=== PATIENT | male | born 1985 | race Hispanic/Latino ===

== ENCOUNTER 2020-09-01 13:27 | Observation (INO) | payer SELFPAY ==
[~2020-09-01] VITALS: Ht 162.6 cm; Wt 72.6 kg
[2020-09-01] MEDS ORDERED: SODIUM CHLORIDE 0.9% 1000ML 1,000 ML IV STA (13:40)
[2020-09-01] MEDS ORDERED: METHYLPREDNISOLONE SOD SUCC 125 MG/2ML VIAL IV STA (13:40)
[2020-09-01] MEDS ORDERED: DIPHENHYDRAMINE HCL INJ 50 MG/ML VIAL IV ONE (13:45)
[2020-09-01] MEDS ORDERED: FAMOTIDINE 20 MG/2 ML VIAL IV NR (13:45)
[2020-09-01] MEDS ORDERED: EPINEPHRINE HCL 1:1000 1ML 1 MG/ML AMP ONE (13:45)
[2020-09-01] MEDS ORDERED: ALBUTEROL SULF 0.083% NEB SOLN 3 ML NEB ONE (13:46)
[2020-09-01] MEDS ORDERED: EPINEPHRINE 0.3 MG/0.3 ML PEN.INJCTR SC STA (13:48)
[2020-09-01 13:53] LABS: BASOPHILS % 0.1 % (0.0-1.0); EOSINOPHILS # (AUTO) 0.1 (0.0-0.4); EOSINOPHILS % 1.6 % (0.0-6.0); HEMATOCRIT 50.1 % (38.2-49.6); HEMOGLOBIN 16.3 g/dL (14.0-18.0); LYMPHOCYTES # (AUTO) 1.7 (1.0-3.2); LYMPHOCYTES % 20.4 % (18.0-39.1); MEAN CORPUSCULAR HEMOGLOBIN 27.9 pg (28-32); MEAN CORPUSCULAR HGB CONC 32.5 g/dL (31-35); MEAN CORPUSCULAR VOLUME 85.6 fL (81-99); MONOCYTES # (AUTO) 0.7 (0.2-0.8); MONOCYTES % 8.7 % (4.4-11.3); NEUTROPHILS # (AUTO) 5.5 (2.1-6.9); NEUTROPHILS % 68.5 % (38.7-80.0); PLATELET COUNT 358 x10e3/uL (140-360); RED BLOOD COUNT 5.85 x10e6/uL (4.3-5.7); RED CELL DISTRIBUTION WIDTH 13.2 % (11.7-14.4)
[2020-09-01 13:57] LABS: INR 0.86; PROTHROMBIN TIME 12.2 seconds (11.9-14.5)
[2020-09-01] MEDS ORDERED: ALBUTEROL SULF 0.083% NEB SOLN 3 ML NEB NEB NR (14:00)
[2020-09-01 14:06] LABS: ALANINE AMINOTRANSFERASE 26 IU/L (0-55); ALBUMIN 4.4 g/dL (3.5-5.0); ALBUMIN/GLOBULIN RATIO 1.3 (0.8-2.0); ALKALINE PHOSPHATASE 54 IU/L (40-150); BLOOD UREA NITROGEN 10 mg/dL (7-26); BUN/CREATININE RATIO 9 (6-25); CARBON DIOXIDE 26 mmol/L (22-29); CHLORIDE 102 mmol/L (98-107); CREATINE KINASE 67 IU/L (30-200); CREATININE, SERUM 1.09 mg/dL (0.72-1.25); EST GLOMERULAR FILTRATION RATE > 60 ML/MIN (60-); GLUCOSE 121 mg/dL (74-118); MAGNESIUM 2.2 MG/DL (1.3-2.1); SODIUM 141 mmol/L (136-145)
[2020-09-01] MEDS ORDERED: SODIUM CHLORIDE 0.9% 1000ML 1,000 ML IV SCH (15:45)
[2020-09-01] MEDS ORDERED: ONDANSETRON HCL INJ 2MG/ML 2ML 2 MG/ML VIAL IV PRN (15:45)
[2020-09-01] MEDS ORDERED: DEXAMETHASONE SOD PHOS 10 MG/1 ML VIAL IV NR (16:00)
[2020-09-01] MEDS: KCL 20MEQ/.9 SOD CHL 1,000 ML IV SCH (17:28)
[2020-09-01 18:00] VITALS: BP 118/82
[2020-09-01 18:06] VITALS: BP 118/82
[2020-09-01] MEDS: DIPHENHYDRAMINE HCL INJ 50 MG/ML VIAL IV SCH (18:14)
[2020-09-01 18:39] VITALS: BP 118/82
[2020-09-01 19:40] VITALS: BP 120/88
[2020-09-01] MEDS: METHYLPREDNISOLONE SOD SUCC 125 MG/2ML VIAL IV SCH (20:43)
[2020-09-01] MEDS: FAMOTIDINE 20 MG/2 ML VIAL IV SCH (20:43)
[2020-09-01 23:34] VITALS: BP 114/79
[2020-09-02] MEDS: DIPHENHYDRAMINE HCL INJ 50 MG/ML VIAL IV SCH ×2 (00:47→05:52)
[2020-09-02] MEDS: KCL 20MEQ/.9 SOD CHL 1,000 ML IV SCH (03:17)
[2020-09-02 04:09] VITALS: BP 125/82
[2020-09-02 05:34] LABS: BASOPHILS % 0.1 % (0.0-1.0); HEMOGLOBIN 14.6 g/dL (14.0-18.0); LYMPHOCYTES # (AUTO) 0.4 (1.0-3.2); LYMPHOCYTES % 3.3 % (18.0-39.1); MEAN CORPUSCULAR HEMOGLOBIN 28.8 pg (28-32); MEAN CORPUSCULAR HGB CONC 33.2 g/dL (31-35); MEAN CORPUSCULAR VOLUME 86.8 fL (81-99); MONOCYTES # (AUTO) 0.2 (0.2-0.8); MONOCYTES % 1.6 % (4.4-11.3); NEUTROPHILS # (AUTO) 10.9 (2.1-6.9); NEUTROPHILS % 94.6 % (38.7-80.0); PLATELET COUNT 292 x10e3/uL (140-360); RED BLOOD COUNT 5.07 x10e6/uL (4.3-5.7); RED CELL DISTRIBUTION WIDTH 13.4 % (11.7-14.4)
[2020-09-02] MEDS: METHYLPREDNISOLONE SOD SUCC 125 MG/2ML VIAL IV SCH (05:52)
[2020-09-02 05:56] LABS: ALANINE AMINOTRANSFERASE 34 IU/L (0-55); ALBUMIN 3.6 g/dL (3.5-5.0); ALBUMIN/GLOBULIN RATIO 1.2 (0.8-2.0); ALKALINE PHOSPHATASE 46 IU/L (40-150); ANION GAP 12.8 mmol/L (8-16); BLOOD UREA NITROGEN 9 mg/dL (7-26); BUN/CREATININE RATIO 12 (6-25); CALCIUM 8.3 mg/dL (8.4-10.2); CARBON DIOXIDE 21 mmol/L (22-29); CHLORIDE 112 mmol/L (98-107); CREATININE, SERUM 0.77 mg/dL (0.72-1.25); EST GLOMERULAR FILTRATION RATE > 60 ML/MIN (60-); GLUCOSE 153 mg/dL (74-118); POTASSIUM 3.8 mmol/L (3.5-5.1); SODIUM 142 mmol/L (136-145)
[2020-09-02 07:05] LABS: CREATINE KINASE MB 0.4 ng/mL (0-5.0)
[2020-09-02 07:38] VITALS: BP 114/77
[2020-09-02 07:51] VITALS: BP 114/77
[2020-09-02] MEDS: FAMOTIDINE 20 MG/2 ML VIAL IV SCH (08:06)
[2020-09-02] MEDS ORDERED: EPIPEN JR0.15 MG/01 IM (09:39)
[2020-09-02] MEDS ORDERED: PEPCID20 MG PO (09:39)
[2020-09-02] MEDS ORDERED: PREDNISONE20 MG PO (09:39)
[2020-09-02] MEDS ORDERED: BENADRYL25 M1 PO (09:39)
== END 2020-09-02 10:16 | disposition left against medical advice (07) ==
LOC: ER 13:52 → ERHOLD 15:41 → IMCU 17:35
PROVIDERS: ADMIT Internal Medicine; ATTEND Internal Medicine
DX: T78.3XXA Angioneurotic edema, initial encounter (principal); T78.00XA Anaphylactic reaction due to unspecified food, initial encounter; Z20.822 Contact with and (suspected) exposure to COVID-19
CPT/HCPCS: 36415 ×2; 71045; 80053 ×2; 82550 ×2; 82553 ×2; 83735; 84484 ×2; 85025 ×2; 85610; 85730; 99284; G0378 ×2; J0171; J1100; J1200 ×2; J2930 ×2; U0002